=== PATIENT | male | born 1985 | race Caucasian/White ===

== ENCOUNTER 2018-10-11 04:39 | Emergency (ER) | payer BC ==
[2018-10-11] MEDS ORDERED: Albuterol/Ipratropium Neb 3 ML AERS HHN ONE ×5 (04:50→07:16)
--- NOTE | 2018-10-11 05:00 | ED Physician Chart ---
ED Chief Complaint/HPI - Patient Information Date Seen:: 10/11/18 Time Seen:: 04:35 Chief Complaint:: Dyspnea History of Present Illness:: onset x 1/2 hour [employer] of dyspnea with cough, fever, and congestion x 3 days; pt denies H/As, S/T, neck pain, C/P, Abd. Pain, A/N/V/D/C, chills, or urinary s/s Allergies:: Allergies Allergy/AdvReac Type Severity Reaction Status Date / Time No Known Allergies Allergy Verified 10/11/18 04:50 Vitals:: Vital Signs - 8 hr 10/11/18 04:39 Temp 98.7 F HR 129 RR 22 BP 162/89 O2 Sat % 95 Historian:: Patient, Family Member Review:: Nurse's Note Reviewed <Brant Martinez - Last Filed: 10/11/18 06:46> - Patient Information Allergies:: Allergies Allergy/AdvReac Type Severity Reaction Status Date / Time No Known Allergies Allergy Verified 10/11/18 04:50 Vitals:: Vital Signs - 8 hr 10/11/18 10/11/18 10/11/18 04:39 04:59 06:41 Temp 98.7 F HR 129 104 104 RR 18 BP 162/89 O2 Sat % 95 95 99 <Ruel Ramachandran - Last Filed: 10/11/18 07:28> ED Review of Systems - Review of Systems General/Constitutional: Fever, No chills, No weight loss, No weakness, No diaphoresis, No edema, No loss of appetite Skin: No skin lesions, No rash, No bruising Head: No headache, No light-headedness Eyes: No loss of vision, No pain, No diplopia ENT: No earache, Nasal drainage, No sore throat, No tinnitus Neck: No neck pain, No swelling, No thyromegaly, No stiffness, No mass noted Cardio Vascular: No chest pain, No palpitations, No PND, No orthopnea, No edema Pulmonary: SOB, Cough, No sputum, No wheezing GI: No nausea, No vomiting, No diarrhea, No pain, No melena, No hematochezia, No constipation, No hematemesis G/U: No dysuria, No frequency, No hematuria, No nacturia Musculoskeletal: No bone or joint pain, No back pain, No muscle pain Endocrine: No polyuria, No polydipsia Psychiatric: No prior psych history, No depression, No anxiety, No suicidal ideation, No homicidal ideation, No auditory hallucination, No visual hallucination Hematopoietic: No bruising, No lymphadenopathy Allergic/Immuno: No urticaria, No angioedema Neurological: No syncope, No focal symptoms, No weakness, No paresthesia, No headache, No seizure, No dizziness, No confusion, No vertigo <Brant Martinez Tommy Filed: 10/11/18 06:46> ED Past Medical History - Past Medical History Obtainable: Yes Past Medical History: Asthma/COPD Family History: HTN Social History: Non Smoker, No Alcohol, No Drug Use, Single Surgical History: None Psychiatricy History: None Medication: Reviewed <Brant Martinez Filed: 10/11/18 06:46> Family Medical History - Family Member Mother History Unknown: Yes <Brant Martinez Filed: 10/11/18 06:46> ED Physical Exam - Physical Examination General/Constitutional: Awake, Well-developed, well-nourished, Alert, No distress, GCS 15, Non-toxic appearing, Ambulatory Head: Atraumatic Eyes: Lids, conjuctiva normal, PERRL, EOMI Skin: Nl inspection, No rash, No skin lesions, No ecchymosis, Well hydrated, No lymphadenopathy ENMT: External ears, nose nl, TM canals nl, Nasal exam nl, Lips, teeth, gums nl , Oropharynx nl, Tonsils nl Neck: Nontender, Full ROM w/o pain, No JVD, No nuchal rigidity, No bruit, No mass, No stridor Respiratory: Nl effort/Exclusion Other Respiratory comments:: Lungs: + Diffuse Wheezes Cardio Vascular: RRR, No murmur, gallop, rubs, NL S1 S2, Carotid/Femoral/Distal pulses equal bilaterally GI: No tenderness/rebounding/guarding, No organomegaly, No hernia, Normal BS's, Nondistended, No mass/bruits, No McBurney tenderness : No CVA tenderness Extremities: No tenderness or effusion, Full ROM, normal strength in all extremities, No edema, Normal digits & nails Neuro/Psych: Alert/oriented, DTR's symmetric, Normal sensory exam, Normal motor strength, Judgement/insight normal, Mood normal, Normal gait, No focal deficits Misc: Normal back, No paraspinal tenderness <[place] - Last Filed: 10/11/18 06:46> ED Labs/Radiology/EKG Results - Lab Results Comments:: Reviewed - Radiology Results Comments:: CXR: + Infiltrate - EKG Interpretations EKG Time:: 04:52 Rate & Rhythm: 119; ST Comments:: non-specific st-t changes <Brant Martinez - Last Filed: 10/11/18 06:46> - Lab Results Results: Laboratory Tests 10/11/18 10/11/18 10/11/18 05:20 05:20 05:20 WBC 11.1 H RBC 5.45 Hgb 15.5 Hct 46.4 MCV 85.2 MCH 28.5 MCHC Differential 33.4 RDW 12.7 Plt Count 296 MPV 7.9 Neutrophils % 82.4 H Lymphocytes % 11.8 L Monocytes % 5.0 Eosinophils % 0.8 Basophils % 0.0 PT 10.0 INR 0.96 D-Dimer Sodium 140 Potassium 3.6 Chloride 106 Carbon Dioxide 21.6 Anion Gap 16.0 BUN 14 Creatinine 0.8 Est GFR ( Amer) > 60.0 Est GFR (Non-Af Amer) > 60.0 BUN/Creatinine Ratio 17.5 Glucose 125 H Calcium 9.3 Total Bilirubin 0.4 AST 16 ALT 26 Alkaline Phosphatase 109 H Creatine Kinase 151 Troponin I B-Natriuretic Peptide Total Protein 7.2 Albumin 4.3 Globulin 2.9 Albumin/Globulin Ratio 1.5 Triglycerides 171 H Cholesterol 216 H LDL Cholesterol Direct 176 HDL Cholesterol 33 10/11/18 10/11/18 10/11/18 05:20 05:20 05:20 WBC RBC Hgb Hct MCV MCH MCHC Differential RDW Plt Count MPV Neutrophils % Lymphocytes % Monocytes % Eosinophils % Basophils % PT INR D-Dimer < 100 L Sodium Potassium Chloride Carbon Dioxide Anion Gap BUN Creatinine Est GFR ( Amer) Est GFR (Non-Af Amer) BUN/Creatinine Ratio Glucose Calcium Total Bilirubin AST ALT Alkaline Phosphatase Creatine Kinase Troponin I < 0.01 L B-Natriuretic Peptide 11.8 Total Protein Albumin Globulin Albumin/Globulin Ratio Triglycerides Cholesterol LDL Cholesterol Direct HDL Cholesterol <Ruel Ramachandran - Last Filed: 10/11/18 07:28> ED Assessment - Assessment General Assessment: Patient developed shortness of breath at 1600 yesterday. He's had myalgia, rhinorrhea and nonproductive cough for 3 days. He thinks he got the upper respiratory tract infection from his girlfriend. Patient took 20 mg of prednisone last night. Patient has a history of asthma. He does not smoke cigarettes or drink alcohol. Physical examination: patient is well-developed well-nourished in no acute distress. He speaks easily in full sentences. HEENT normal. Neck supple. Chest 1.5 out of 4 inspiratory/expiratory wheezing. Heart regular rhythm no murmur or extra sound. Patient will receive one more breathing treatment with albuterol and Atrovent and then be discharged with a prescription for prednisone 60 mg a day for 5 days to start tomorrow. Patient does not need a prescription for albuterol/Atrovent. <Ruel Ramachandran - Last Filed: 10/11/18 07:28> ED Septic Shock - . Is Septic Shock (SBP<90, OR Lactate>4 mmol\L) present?: No - <6hrs of presentation: Vital Signs: Vital Signs - 8 hr 10/11/18 04:39 Temp 98.7 F HR 129 RR 22 BP 162/89 O2 Sat % 95 <Brant Martinez - Last Filed: 10/11/18 06:46> - <6hrs of presentation: Vital Signs: Vital Signs - 8 hr 10/11/18 10/11/18 10/11/18 04:39 04:59 06:41 Temp 98.7 F HR 129 104 104 RR 18 BP 162/89 O2 Sat % 95 95 99 <Ruel Ramachandran - Last Filed: 10/11/18 07:28> ED Reassessment (Disposition) - Reassessment Reassessment Condition:: Improved - Diagnosis Diagnosis:: Wheezing; Dyspnea; Asthma; Tachycardia; PNA; Sepsis; Leukocytosis <Brant Martinez - Last Filed: 10/11/18 06:46> - Aftercare/Follow up Instructions Medication Prescribed:: Prednisone 60 mg a day for 5 days - Patient Disposition Discharge/Transfer:: Home Condition at Disposition:: Stable, Improved <Ruel Ramachandran - Last Filed: 10/11/18 07:28>
[2018-10-11 05:36] LABS: % EOSINOPHILS 0.8 % (0.0-5.0); EOSINOPHILE ABSOLUTE 0.1 Th/cmm (0.1-0.4); LYMPHOCYTE ABSOLUTE 1.3 Th/cmm (1.5-3.0); MEAN CORPUSCULAR HEMOGLOBIN 28.5 pg (26.0-30.0)
[2018-10-11 05:42] LABS: % LYMPHOCYTES 11.8 % (20.0-50.0); % NEUTROPHILS 82.4 % (40.0-80.0); HEMATOCRIT 46.4 % (41.0-60); HEMOGLOBIN 15.5 gm/dL (12-16); MEAN CELL VOLUME 85.2 fl (80-99); MEAN CORPUSCULAR HGB CONC 33.4 pg (28.0-36.0); MEAN PLATELET VOLUME 7.9 fl; MONOCYTE ABSOLUTE 0.6 Th/cmm (0.3-1.0); NEUTROPHILE ABSOLUTE 9.1 Th/cmm (1.8-8.0); PLATELET COUNT 296 Th/cmm (150-400); RED BLOOD COUNT 5.45 Mil/cmm (4.30-5.70); RED CELL DISTRIBUTION WIDTH 12.7 % (11.5-20.0); WHITE BLOOD COUNT 11.1 Th/cmm (4.8-10.8)
[2018-10-11 05:45] LABS: INR 0.96 (0.5-1.4)
[2018-10-11 05:49] LABS: ALB/GLOB RATIO 1.5 (1.0-1.8); ALBUMIN 4.3 gm/dL (4.2-5.5); ALKALINE PHOSPHATASE 109 U/L (34-104); BILIRUBIN,TOTAL 0.4 mg/dL (0.3-1.0); BUN - UREA NITROGEN 14 mg/dL (7-25); CALCIUM SERUM 9.3 mg/dL (8.6-10.3); CARBON DIOXIDE 21.6 mEq/L (21.0-31.0); CHLORIDE 106 mEq/L (98-107); CHOLESTEROL 216 mg/dL (<200); CREATININE - SERUM 0.8 mg/dL (0.7-1.3); CREATININE KINASE 151 U/L (30-223); GFR AFRICAN-AMERICAN > 60.0 ml/min (>90); GFR NON AFRICAN-AMERICAN > 60.0 ml/min; GLUCOSE 125 mg/dL (70-105); HDL -HIGH DENSITY LIPOPROTEIN 33 mg/dL (23-92); POTASSIUM SERUM 3.6 mEq/L (3.5-5.1); SGOT 16 U/L (13-39); SGPT/ALT 26 U/L (7-52); SODIUM SERUM 140 mEq/L (136-145); TOTAL PROTEIN,SERUM 7.2 gm/dL (6.0-8.3); TRIGLYCERIDES 171 mg/dL (<150)
[2018-10-11] MEDS ORDERED: cefTRIAXone 1 GM in Sodium Chloride 0.9% 50 ML IV ONE (06:31)
--- NOTE | 2018-10-11 09:17 | Diagnostic Imaging Report ---
CHEST X-RAY: AP view INDICATION: pain COMPARISON: None FINDINGS: There is mild accentuation of the interstitial lung markings. There is no focal consolidation or pleural effusions The heart is normal in size. The osseous structures demonstrate no acute abnormalities. IMPRESSION: Mild accentuation of the interstitial lung markings. Please correlate clinically. No focal airspace consolidation identified.
== END 2018-10-11 07:45 | disposition home or self-care (01) ==
LOC: ER 04:39
DX: A41.9 Sepsis, unspecified organism (principal); J45.909 Unspecified asthma, uncomplicated; D72.829 Elevated white blood cell count, unspecified; R00.0 Tachycardia, unspecified
CPT/HCPCS: 99285; 96374; 94640 ×3; 93005; 71045; 84484; 83880; 36415; 85379; 85025; 85610; 82550; 80053; 80061; J2930